=== PATIENT | male | born 1970 | race Two or more races ===

== ENCOUNTER 2020-12-05 17:00 | Emergency (ER) | payer BC, OTHER ==
[~2020-12-05] VITALS: Ht 177.8 cm; Wt 83.9 kg
[2020-12-05 18:32] VITALS: BP 126/84
== END 2020-12-05 18:37 | disposition home or self-care (01) ==
LOC: ER 17:00
DX: S29.012A Strain of muscle and tendon of back wall of thorax, initial encounter (principal); F17.210 Nicotine dependence, cigarettes, uncomplicated; Z88.0 Allergy status to penicillin; X50.9XXA Other and unspecified overexertion or strenuous movements or postures, initial encounter; Y93.89 Activity, other specified; Y92.89 Other specified places as the place of occurrence of the external cause; Y99.8 Other external cause status
CPT/HCPCS: 71046

== ENCOUNTER → 2022-08-02 | Emergency (ER) | payer BC, MEDICAID ==
[~2022-08-02] VITALS: Ht 177.8 cm; Wt 72.8 kg
[~2022-08-02] MED LIST: DICY10CA PO; FAMOTIDINE (10MG/ML) 2ML VL IV ONE; KETOROLAC TROMETH 60MG/2ML VIAL IV ONE; LACTATED RINGER'S 1,000 ML IV ONE; ONDA-155 PO; ONDANSETRON HCL 4 MG/2 ML VIAL IV SCH
[2022-08-02 07:53] LABS: Urine Bacteria NONE SEEN /hpf (None Seen); Urine Blood Negative /uL (Negative); Urine Mucus FEW (None Seen); Urine Specific Gravity 1.029 (1.001-1.035); Urine WBC 1 /hpf (0 - 3)
[2022-08-02 08:50] LABS: Eosinophils # (auto) 0.2 10 ^3/uL (0-0.8); Monocytes # (auto) 0.8 10 ^3/uL (0-1.3); White Blood Cell 9.3 10^3/uL (4.4-10.8)
[2022-08-02 08:51] LABS: Basophils # (auto) 0 10 ^3/uL (0-0.2); Basophils % (auto) 0.2 % (0.0-2.0); Eosinophils % (auto) 1.7 % (0.0-7.0); Hematocrit 53.3 % (41.0-53.0); Hemoglobin 17.8 g/dL (13.5-17.5); Lymphocytes % (auto) 10.5 % (10.0-50.0); Mean Corpuscular Hemoglobin 32.7 pg (28.0-32.0); Mean Corpuscular Hgb Conc. 33.4 g/dL (32.0-36.0); Mean Corpuscular Volume 97.8 fL (80.0-100.0); Monocytes % (auto) 8.6 % (0.0-12.0); Neutrophils # (auto) 7.4 10 ^3/uL (1.6-8.6); Red Blood Cells 5.45 10^6/uL (4.5-5.90); Red Cell Distribution Width 14.1 % (11.8-14.3)
[2022-08-02 09:10] LABS: Albumin 4.4 g/dL (3.4-5.0); Calcium 8.8 mg/dL (8.5-10.1); Potassium 4.2 mmol/L (3.5-5.1)
[2022-08-02 09:13] LABS: BUN/Creatinine Ratio 17.9; Bilirubin, Total 0.4 mg/dL (0.2-1.0); Total Protein 7.8 g/dL (6.4-8.2)
[2022-08-02 12:00] VITALS: BP 98/60
== END | disposition home or self-care (01) ==
LOC: ER 05:33
DX: K52.9 Noninfective gastroenteritis and colitis, unspecified (principal); F17.210 Nicotine dependence, cigarettes, uncomplicated; F12.10 Cannabis abuse, uncomplicated; Z88.0 Allergy status to penicillin
CPT/HCPCS: 36415; 80053; 81001; 83605; 85025; 87040; 96361; 96374; 96375; 99285; J1885; J2405; J3490